=== PATIENT | female | born 1960 | race American Indian/Alaskan Native ===

== ENCOUNTER 2021-12-29 17:48 | Emergency (ER) | payer MEDICARE ==
[2021-12-29] MEDS ORDERED: SODIUM CHLORIDE 0.9% 1000 ML 1,000 ML IV ONE (18:12)
[2021-12-29] MEDS ORDERED: SODIUM CHLORIDE 0.9% 500 ML 500 ML IV ONE (18:14)
[2021-12-29] MEDS ORDERED: ACETAMINOPHEN 500 MG TAB PO STA (18:14)
--- NOTE | 2021-12-29 18:20 | Emergency Department Report ---
ED Seizure HPI - General Chief Complaint: Seizure Stated Complaint: HEAT STROKE/SEIZURE Time Seen by Provider: 12/29/21 18:09 Source: patient Mode of arrival: Ambulatory Limitations: No Limitations - History of Present Illness Initial Comments: 61-year-old female with a history of seizure brought in by EMS with episode of seizure this afternoon. Patient was given 5 mg of Versed in route and postictal on presentation. History is limited to EMS history. No other modifying or associated factors reported. - Related Data Allergies Allergy/AdvReac Type Severity Reaction Status Date / Time No Known Allergies Allergy Verified 12/29/21 17:52 ED Review of Systems ROS: Stated complaint: HEAT STROKE/SEIZURE Other details as noted in HPI Comment: All other systems reviewed and negative Neurological: other (Seizure) ED Past Medical Hx - Past Medical History Previous Medical History?: Yes Hx Seizures: Yes Hx Psychiatric Treatment: Yes (bipolar) - Surgical History Past Surgical History?: Yes ED Physical Exam - General Limitations: No Limitations General appearance: in no apparent distress, postictal - Head Head exam: Present: normal inspection - Eye Eye exam: Present: normal appearance Pupils: Present: normal accommodation - ENT ENT exam: Present: normal exam, normal orophraynx, mucous membranes moist - Neck Neck exam: Present: normal inspection, full ROM. Absent: tenderness - Respiratory Respiratory exam: Present: normal lung sounds bilaterally. Absent: respiratory distress, accessory muscle use - Cardiovascular Cardiovascular Exam: Present: regular rate, normal rhythm, normal heart sounds - GI/Abdominal GI/Abdominal exam: Present: soft, normal bowel sounds. Absent: distended, tenderness - Extremities Exam Extremities exam: Present: normal inspection, full ROM, normal capillary refill. Absent: tenderness, pedal edema, joint swelling - Back Exam Back exam: Absent: tenderness - Neurological Exam Neurological exam: Present: other (sleepy and postictal ) - Skin Skin exam: Present: warm, normal color ED Course Vital Signs 12/29/21 12/29/21 12/29/21 17:53 19:23 19:45 Temperature 102.7 F H 98.2 F Pulse Rate 110 H 87 Respiratory 16 18 15 Rate Blood Pressure 115/65 121/70 [Left] O2 Sat by Pulse 97 99 Oximetry - Reevaluation(s) Reevaluation #1: 12/29/21 18:2 brought in by EMS with seizure episode and given versed en route EMS-- now postictal-- noted to be febrile at 102 degrees F so will order septic labs protocol and continue to monitor-- Reevaluation #2: 12/29/21 21:09 I reevaluated this patient who report that she is feeling much better. She got up and walking around in room wanted to be discharged home. Few of this patient labs still pending at this point including a Keppra level. She has had a total of 1 g of Keppra and 1 L of IV fluids for hydration.Pt also told me that she was walking around shopping in the sun with her daughter when she had the seizure episode. She also mentioned to me that she takes Keppra twice a day. ED Medical Decision Making - Lab Data Result diagrams: 12/29/21 18:41 12/29/21 18:41 - EKG Data -: EKG Interpreted by Me EKG shows normal: sinus rhythm Rate: normal - EKG Data Interpretation: nonspecific ST-T wave katja, other (left atria enlargement) 12/29/21 21:24 Returned with normal sinus rhythm at a rate of 89 bpm with left atrial enlargement and normal QT and QTc induced abdominal ECG. Critical care attestation.: If time is entered above; I have spent that time in minutes in the direct care of this critically ill patient, excluding procedure time. ED Disposition Clinical Impression: Seizure Fever Qualifiers: Fever type: unspecified Qualified Code(s): R50.9 - Fever, unspecified Disposition: 01 HOME / SELF CARE / HOMELESS Is pt being admited?: No Does the pt Need Aspirin: No Condition: Stable Instructions: Non-Epileptic Seizures, Adult, Seizure, Adult, [id number] Additional Instructions: Please continue to take all your chronic medication as prescribed by your primary doctor and your neurology Increase your daily fluid to help your hydration Call and schedule follow-up with your primary doctor in the next 3 to 5 days for progress Please do not hesitate to call or return to emergency room if your symptoms worsen Referrals: YOGESH GARCIA MD [Referring] - 3-5 Days Time of Disposition: 21:13
--- NOTE | 2021-12-29 19:12 | XRay Report ---
CHEST 1 VIEW 12/29/2021 6:31 PM INDICATION / CLINICAL INFORMATION: Possible sepsis. COMPARISON: None available. FINDINGS: SUPPORT DEVICES: None. HEART / MEDIASTINUM: The heart size is at the upper limits of normal. Pulmonary vasculature is normal for technique. LUNGS / PLEURA: There are mild patchy parenchymal opacities in both lower lung zones. No pleural effu john. No pneumothorax. ADDITIONAL FINDINGS: No significant additional findings. IMPRESSION: Patchy parenchymal opacities in both lower lung zones are probably related to pneumonia. Signer Name: Julius Baca MD Signed: 12/29/2021 7:07 PM Workstation Name: [id number]
[2021-12-29 19:14] LABS: INR 1.04 (0.87-1.13)
[2021-12-29 19:16] LABS: Hematocrit 35.8 % (30.3-42.9); Hemoglobin 12.3 gm/dl (10.1-14.3); Mean Corpuscular HGB Conc 34 % (30-34); Mean Corpuscular Volume 99 fl (79-97); Platelet Count 152 K/mm3 (140-440); Red Blood Count 3.63 M/mm3 (3.65-5.03); Red Cell Distribution Width 14.8 % (13.2-15.2)
[2021-12-29 19:26] LABS: Alanine Aminotransferase 18 units/L (7-56); Albumin 3.6 g/dL (3.9-5); BUN/Creatinine Ratio 17; Blood Urea Nitrogen 24 mg/dL (7-17); Calcium 8.6 mg/dL (8.4-10.2); Hemolysis Index 5
[2021-12-29] MEDS ORDERED: levETIRAcetam 1000 MG/NS 0.75% 1,000 MG/100 ML BAG IV ONE (20:15)
[2021-12-29 21:55] VITALS: BP 140/76
--- NOTE | 2021-12-30 18:17 | Electrocardiograph Report ---
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
== END 2021-12-29 21:45 | disposition home or self-care (01) ==
LOC: ED 17:48
DX: R56.9 Unspecified convulsions (principal); R50.9 Fever, unspecified; F31.9 Bipolar disorder, unspecified; Z98.890 Other specified postprocedural states
CPT/HCPCS: 36415; 71045; 80053; 80177; 82140; 82805; 83880; 84443; 84484; 85025; 85610; 87040; 93005; 96361; 96365; 99284; J1953; J7030; J7040